=== PATIENT | male | born 1965 | race Caucasian/White ===

== ENCOUNTER → 2019-09-18 | Day surgery (SDC) | payer BC, OTHER ==
--- NOTE | 2019-09-13 10:37 | Diagnostic Imaging Report ---
X-ray chest 2 views Comparison: None History: Preop for hand surgery. Findings: Central airways, cardiomediastinal silhouettes, diaphragms, pleural spaces, lung hammond, visualized skeletal structures and upper abdomen are unremarkable. There is mild dextroconvexity of the thoracic spine. Impression: No significant acute cardiopulmonary abnormality. Signed by: Alphonso Hannah MD on 09/13/2019 10:34 AM
[~2019-09-18] MED LIST: BUPIVACAINE HCL 0.5% INJ 30 ML VIAL INJ ONE; CEFAZOLIN SOD 1 GM/NS 50ML 50 ML IV ONE; ETOMIDATE 2 MG/ML 10 ML INJ IV ONE; HYDROMORPHONE 1MG/1ML INJ ONE; KETOROLAC TROMETHAMINE 30 MG/ML VIAL ONE; LIDOCAINE HCL 2% LOCAL INJ 5 ML SDV VIAL INJ ONE; LIPITOR10 MG PO; MUPIROCIN 2% OINT 22 GM TUBE ONE; NORCO 10-325 T1 EACH PO; ONDANSETRON HCL INJ 2MG/ML 2ML 2 MG/ML VIAL ONE; PROPOFOL IV EMULSION 10 MG/ML 20 ML VIAL ONE; SEVOFLURANE INHAL SOLN 250 ML PEN BTL ONE; VALTREX500 MG PO
[2019-09-18 09:40] VITALS: BP 138/94
--- NOTE | 2019-09-18 18:38 | Operative Report ---
DATE OF PROCEDURE: 09/18/2019 SURGEON: Henry Yan MD PREOPERATIVE DIAGNOSES: 1. Dupuytren's fasciitis, left little finger. 2. Dupuytren's fasciitis, left ring finger. 3. Dupuytren's palmar cord, left long finger. 4. Left carpal tunnel syndrome. POSTOPERATIVE DIAGNOSES: 1. Dupuytren's fasciitis, left little finger. 2. Dupuytren's fasciitis, left ring finger. 3. Dupuytren's palmar cord, left long finger. 4. Left carpal tunnel syndrome. PROCEDURES: 1. Excision of Dupuytren's cord to left little finger. 2. Excision of Dupuytren's cord to left ring finger. 3. Palmar fascial excision of cord to left long finger. 4. Left carpal tunnel release. ANESTHESIA: General. HISTORY: The patient is a 54-year-old [id number] male, who has severe Dupuytren's diathesis involving the ulnar three fingers on the left hand. He also has symptoms of carpal tunnel syndrome. The risks, benefits, and alternatives of treatment were discussed with the patient and he is prepared to undergo the procedure as outlined. PROCEDURE IN DETAIL: The patient was marked preoperatively in the holding area. He was brought to the operating theater and after the induction of adequate general anesthesia, he was prepped and draped in a supine position and a time-out was performed. The procedure was begun by marking out a 2 cm incision and left into the thenar space, and all of the fascial cords were marked out as well. The left upper extremity was exsanguinated and the tourniquet was inflated to a pressure of 250 mmHg. The incision in the interthenar space was made through the skin and subcutaneous tissues. Venous tributaries were controlled with bipolar cautery. The incision was deepened to the palmar fascia until the transverse carpal ligament was identified. The ligament was sharply sectioned, taking care to protect and preserve the median nerve underlying it. After the complete width of the ligament was transected, the distal volar forearm fascia was divided under direct view. Proliferative flexor tenosynovium was noted to encompass the median nerve, and this was radically excised. After performing this maneuver, the nerve was adequately decompressed. The wound was copiously irrigated with bacteriostatic saline and closed with a 5-0 nylon in an interrupted horizontal mattress fashion. The incision to the left little finger, which was marked out extending from the mid palm onto the proximal phalanx is then incised through the skin and subcutaneous plane. There was dense adhesions between the fascial cord and the undersurface of the dermis to the skin. Using sharp dissection, the skin flaps were elevated off the fascial cord for the entire length. At this point, a hemostat was placed directly beneath the proximal portion of the cord, elevating it out of the plane of the palm and the cord was then transected. At this point, dissection on both the radial ulnar side of the cord allows identification of the radial and the ulnar neurovascular bundles. Once these are identified, the cord was then dissected off the tendinous structures, keeping both the radial ulnar neurovascular bundles inside and protected and preserved it at all times. The dissection was continued distally until the proximal phalanx is reached, then the cord terminates. The entire cord was then removed and sent for permanent pathologic examination. Inspection reveals that both neurovascular bundles are completely intact and preserved. At this point, an incision was made between the palmar and digital cord of the left ring finger and the palmar cord to the left long finger. The incision was made through the skin and subcutaneous tissues. Venous tributaries were controlled with bipolar cautery. The cord to the left ring finger was then approached through the original incision, which was ulnar to it and this palmar incision. The skin was dissected off the cord in the deep dermal plane. Once the cord was identified, the neurovascular bundle on the radial side to this cord was identified as the ulnar neurovascular bundle was previously identified for the resection of the first cord. The proximal portion of the cord was then transected and dissection continues from proximal to distal, excising all of the vertical extensions of the cord to the intrinsic muscles, keeping the neurovascular bundles inside at all times. The cord was then dissected all the way to the MP joint, where the cord terminates and it is removed in its entirety. At this point, the cord to the left long finger is palmar only and it was identified and dissected off the undersurface of the skin of the palm. At this point, the cord was transected both proximally and distally, and then removed without difficulty. The wounds were inspected. All the neurovascular bundles were noted to be intact. The tourniquet was deflated all bleeding points were attended to using the bipolar cautery. At this point, all the wounds were copiously irrigated with bacteriostatic saline and closed with 5-0 nylon in an interrupted horizontal mattress fashion. At the level of the MP flexion crease, the left little finger where the incision crosses the flexion crease, the Z-plasty was performed. A Marcaine field block was performed at all the operative sites and the patient then receives a sterile bulking conforming bandage, placed over Xeroform gauze, and Bactroban ointment. A fiberglass splint was fashioned to maintain the wrist in a modest amount of extension. The MPs at approximately 60 to 70 degrees and the IP was neutral and this was held in place with a loosely wrapped Jaison wrap. All the fingers pinked up nicely after the tourniquet was deflated and the patient returned to recovery room in satisfactory condition and discharged with a postoperative instruction sheet as well as a followup appointment. MD NITISH Ayers/STU /[id number]
== END | disposition home or self-care (01) ==
LOC: OR 05:15
PROVIDERS: ATTEND Plastic Surgery
DX: M72.0 Palmar fascial fibromatosis [Dupuytren] (principal); G56.02 Carpal tunnel syndrome, left upper limb; M54.9 Dorsalgia, unspecified; E78.5 Hyperlipidemia, unspecified; F17.210 Nicotine dependence, cigarettes, uncomplicated; Z01.810 Encounter for preprocedural cardiovascular examination; Z01.812 Encounter for preprocedural laboratory examination; Z01.818 Encounter for other preprocedural examination; Z11.59 Encounter for screening for other viral diseases
CPT/HCPCS: 25115; 26123; 26125 ×2; 71046; 88304; 93005; J0690; J1170; J1885; J2001; J2405; J2704; U0002; 88305

== ENCOUNTER → 2019-10-15 | Outpatient (RCR) | payer BC ==
[~2019-10-15] MED LIST changes: -BUPIVACAINE HCL 0.5% INJ 30 ML VIAL INJ ONE; -CEFAZOLIN SOD 1 GM/NS 50ML 50 ML IV ONE; -ETOMIDATE 2 MG/ML 10 ML INJ IV ONE; -HYDROMORPHONE 1MG/1ML INJ ONE; -KETOROLAC TROMETHAMINE 30 MG/ML VIAL ONE; -LIDOCAINE HCL 2% LOCAL INJ 5 ML SDV VIAL INJ ONE; -MUPIROCIN 2% OINT 22 GM TUBE ONE; -ONDANSETRON HCL INJ 2MG/ML 2ML 2 MG/ML VIAL ONE; -PROPOFOL IV EMULSION 10 MG/ML 20 ML VIAL ONE; -SEVOFLURANE INHAL SOLN 250 ML PEN BTL ONE
== END ==
LOC: OT 10-08 10:11
PROVIDERS: ATTEND Plastic Surgery
DX: M72.0 Palmar fascial fibromatosis [Dupuytren] (principal); M79.642 Pain in left hand; M25.642 Stiffness of left hand, not elsewhere classified; R53.1 Weakness

== ENCOUNTER → 2019-11-14 | Outpatient (RCR) | payer BC | LOC: OT 10-19 14:10 | PROVIDERS: ATTEND Plastic Surgery | DX: M72.0 Palmar fascial fibromatosis [Dupuytren] (principal); M79.642 Pain in left hand; M25.642 Stiffness of left hand, not elsewhere classified; R53.1 Weakness ==

== ENCOUNTER 2019-11-21 10:00 | Outpatient (RCR) | payer BC | END 2019-12-15 | LOC: OT 10:00 | PROVIDERS: ATTEND Plastic Surgery | DX: M72.0 Palmar fascial fibromatosis [Dupuytren] (principal); M79.642 Pain in left hand; M25.642 Stiffness of left hand, not elsewhere classified; R53.1 Weakness ==

== ENCOUNTER → 2020-01-28 | Outpatient (CLI) | payer BC | LOC: DX 16:09 → EDSTATUS 01-31 07:30 | PROVIDERS: ATTEND Plastic Surgery | DX: Z20.828 Contact with and (suspected) exposure to other viral communicable diseases (principal); Z01.818 Encounter for other preprocedural examination; M72.0 Palmar fascial fibromatosis [Dupuytren] | CPT/HCPCS: 93005; U0002 ==